=== PATIENT | female | born 1985 | race Caucasian/White ===

== ENCOUNTER 2016-07-21 18:22 | Emergency (ER) | payer OTHER ==
[2016-07-21 18:39] VITALS: BP 127/74; PULSE 82; RESP 20; TEMP 99.7
[2016-07-21] MEDS ORDERED: KETOROLAC 60 MG/2 ML VIAL IM STA (19:34)
--- NOTE | 2016-07-21 19:43 | ED ---
General Adult HPI - General Chief complaint: Back Pain/Injury Stated complaint: lower back pain Time Seen by Provider: 07/21/16 18:57 Source: patient, RN notes reviewed Mode of arrival: ambulatory Limitations: no limitations - History of Present Illness Initial comments: This is a 22-year-old female presents with lower back pain 1 month. Patient states this is the same back pain she has been feeling for one month. Patient denies any injury or fall, change in bowel or bladder function or loss of sensation to the saddle area, numbness/tingling/weakness or radicular pain to the bilateral lower extremities. Patient is able to ambulate. Patient states pain is worse if she stands up straight. Patient has tried meloxicam for the pain in the past but this has not helped. Patient denies any cough, congestion , fever/chills, sore throat or headache. Patient states she has an MRI scheduled for 07/30/2016. Patient denies any recent fever, chills, shortness breath, chest pain, abdominal pain, nausea/vomiting/diarrhea, hematuria, or visual changes, or any other complaints. - Related Data Previous Rx's Medication Instructions Recorded Cyclobenzaprine [Flexeril] 5 mg PO HS 3 Days 07/21/16 Allergies Allergy/AdvReac Type Severity Reaction Status Date / Time No Known Allergies Allergy Verified 07/21/16 18:39 Review of Systems ROS Statement: Those systems with pertinent positive or pertinent negative responses have been documented in the HPI. ROS Other: All systems not noted in ROS Statement are negative. Past Medical History Past Medical History: No Reported History History of Any Multi-Drug Resistant Organisms: None Reported Past Surgical History: No Surgical Hx Reported Past Psychological History: No Psychological Hx Reported Smoking Status: Never smoker Past Alcohol Use History: None Reported Past Drug Use History: None Reported General Exam - General Exam Comments Initial Comments: General: The patient is awake and alert, in no distress, and does not appear acutely ill. Neck: The neck is supple, there is no tenderness or JVD. Cardiovascular: There is a regular rate and rhythm. No murmur, rub or gallop is appreciated. Respiratory: Lungs are clear to auscultation, respirations are non-labored, breath sounds are equal. No wheezes, stridor, rales, or rhonchi. Musculoskeletal: There is mild tenderness to palpation of the lumbar spine and lumbar paraspinal muscles. Patient has full range of motion, strength 5/5 and Sensation intact. Radial pulses are 2+ bilaterally. Patient is ambulatory without difficulty in the EC. Neurological: A&O x 3. CN II-XII intact, There are no obvious motor or sensory deficits. Coordination appears grossly intact. Speech is normal. Skin: Skin is warm and dry and no rashes or lesions are noted. Psychiatric: Normal mood and affect. Limitations: no limitations Course Vital Signs 07/21/16 18:37 Temperature 99.7 F H Pulse Rate 82 Respiratory 20 Rate Blood Pressure 127/74 O2 Sat by Pulse 100 Oximetry Medical Decision Making - Medical Decision Making This is a 22-year-old female patient with chronic lower back pain. On physical exam patient is ambulatory in the EC. There is mild tenderness to palpation of the lumbar spine and lumbar paraspinal muscles. Patient was given Toradol in the EC. I discussed patient was sent home with prescription for Flexeril for the next few days to take at night. I discussed not driving or drinking alcohol while taking Flexeril. I discussed anti-inflammatories and Tylenol. Discussed heating pads to the area. I discussed return parameters.Discussed that patient should follow up with PCP in one to 2 days or return to the EC for any worsening symptoms or for any further concerns. Patient was receptive to this plan and patient will be discharged home. Disposition Clinical Impression: Mechanical back pain, Chronic low back pain Disposition: HOME SELF-CARE Condition: Good Instructions: Chronic Back Pain (ED) Additional Instructions: Please continue anti-inflammatories such as Motrin along with Tylenol and heating pads for pain relief. Please use Flexeril as prescribed and do not take while driving in or drinking alcohol as this can make you drowsy. Please follow-up with your primary care physician tomorrow or return to the EC for any worsening symptoms or for any further concerns. Prescriptions: Cyclobenzaprine [Flexeril] 5 mg PO HS 3 Days Referrals: Alison Agee MD [Primary Care Provider] - 1-2 days Time of Disposition: 19:43
== END 2016-07-21 20:33 | disposition home or self-care (01) ==
LOC: EC 18:22
DX: G89.29 Other chronic pain (principal); M54.5 Low back pain; M54.9 Dorsalgia, unspecified
CPT/HCPCS: 99283; 96372; J1885

== ENCOUNTER 2016-10-18 17:00 | Emergency (ER) | payer OTHER ==
[2016-10-18 17:17] VITALS: BP 123/84; PULSE 95; RESP 18; TEMP 98.6
--- NOTE | 2016-10-18 17:22 | ED ---
Allergic Reaction HPI - General Stated complaint: Rash Time Seen by Provider: 10/18/16 17:06 Source: patient, RN notes reviewed Mode of arrival: ambulatory Limitations: no limitations - History of Present Illness Initial Comments: 30-year-old female presents emergency department chief complaint ALLERGIC reaction. Patient stated that she slept at hotel last night and since she's had this itchy rash start. Patient has noted itchiness to the arms and legs abdomen and trunk. Patient denies any difficulty breathing with this. Patient states that she drinks enough as well. Patient states that she did not know of anything else new. Patient denies any nausea vomiting or diarrhea. Patient denies any recent fever, chills, shortness of breath, chest pain, back pain, abdominal pain, nausea vomiting, numbness or tingling, dysuria or hematuria, constipation or diarrhea, headaches or visual changes, or any other current symptoms. - Related Data Home Medications Medication Instructions Recorded Confirmed Levothyroxine Sodium [Synthroid] 25 mcg PO 10/18/16 Previous Rx's Medication Instructions Recorded diphenhydrAMINE [Benadryl] 50 mg PO HS PRN #5 capsule 10/18/16 predniSONE 50 mg PO DAILY #5 tab 10/18/16 Allergies Allergy/AdvReac Type Severity Reaction Status Date / Time No Known Allergies Allergy Verified 07/21/16 18:39 Review of Systems ROS Statement: Those systems with pertinent positive or pertinent negative responses have been documented in the HPI. ROS Other: All systems not noted in ROS Statement are negative. Past Medical History Past Medical History: No Reported History History of Any Multi-Drug Resistant Organisms: None Reported Past Surgical History: No Surgical Hx Reported Past Psychological History: No Psychological Hx Reported Smoking Status: Never smoker Past Alcohol Use History: Occasional Past Drug Use History: None Reported General Exam Limitations: no limitations General appearance: alert, in no apparent distress ENT exam: Present: normal exam, mucous membranes moist Neck exam: Present: normal inspection. Absent: tenderness, meningismus, lymphadenopathy Respiratory exam: Present: normal lung sounds bilaterally. Absent: respiratory distress, wheezes, rales, rhonchi, stridor Cardiovascular Exam: Present: regular rate, normal rhythm Back exam: Present: normal inspection Neurological exam: Present: alert, oriented X3 Psychiatric exam: Present: normal affect Skin exam: Present: warm, dry, intact, normal color, urticaria (Arms legs and trunk) Course Vital Signs 10/18/16 17:11 Temperature 98.6 F Pulse Rate 95 Respiratory 18 Rate Blood Pressure 123/84 O2 Sat by Pulse 98 Oximetry Medical Decision Making - Medical Decision Making 30-year-old female presents with what appears to be urticaria. We'll start patient on steroids and Benadryl for home. We discussed care follow-up and return parameters. We discussed all patient's questions. She states she understood she isn't and plan. She'll be discharged. Disposition Clinical Impression: Urticaria Disposition: HOME SELF-CARE Condition: Stable Instructions: Urticaria (ED) Additional Instructions: Please use medication as discussed. Please follow up with family doctor if symptoms have not improved over the next two days. Please return to the emergency room if your symptoms increase or worsen or for any other concerns. Prescriptions: diphenhydrAMINE [Benadryl] 50 mg PO HS PRN #5 capsule PRN Reason: Itching predniSONE 50 mg PO DAILY #5 tab Referrals: Alison Agee MD [Primary Care Provider] - 1-2 days Time of Disposition: 17:22
== END 2016-10-18 17:27 | disposition home or self-care (01) ==
LOC: EC 17:00
DX: L50.9 Urticaria, unspecified (principal); E07.9 Disorder of thyroid, unspecified; Z79.899 Other long term (current) drug therapy
CPT/HCPCS: 99283